=== PATIENT | male | born 1945 | race Asian ===

== ENCOUNTER 2017-01-17 09:52 | Day surgery (SDC) | payer MEDICARE, MEDICAID ==
[~2017-01-17] VITALS: Ht 167.6 cm; Wt 78.0 kg
[~2017-01-17 09:52] MED LIST: ACET-1757 PO; ASPI-515 PO; ATOR10TA9 PO; CHOL20003 PO; FINA5TAB4 PO; GLIP-142 PO; HYDR25TA6 PO; LOSA100T6 PO; METF10002 PO; NIAC400C5 PO; PRAV10TA2 PO; SITA100T PO; TAMS0.4C2 PO
[2017-01-17] MEDS ORDERED: SODIUM CHLORIDE 0.9% 1,000 ML IV SCH (10:33)
[2017-01-17 10:34] VITALS: BP 136/75
[2017-01-17] MEDS ORDERED: SIMV10TA3 PO (10:39)
[2017-01-17 10:51] LABS: HEMOGLOBIN 15.8 g/dL (13.7-18.0)
[2017-01-17] MEDS ORDERED: LIDOCAINE 1%, 20ML ONE (11:08)
[2017-01-17] MEDS ORDERED: FENTANYL PF 100 MCG/2ML ONE (11:48)
[2017-01-17] MEDS ORDERED: MIDAZOLAM 1 MG/ML, 5ML ONE (11:48)
[2017-01-17] MEDS ORDERED: NALOXONE 1 MG/ML, 2ML ONE (11:48)
[2017-01-17] MEDS ORDERED: FLUMAZENIL 0.1 MG/1 ML, 5ML ONE (11:49)
== END 2017-01-17 14:30 | disposition home or self-care (01) ==
LOC: OUT 09:52
PROVIDERS: ATTEND Internal Medicine Hematology & Oncology
DX: D47.3 Essential (hemorrhagic) thrombocythemia (principal); I10 Essential (primary) hypertension; E11.39 Type 2 diabetes mellitus with other diabetic ophthalmic complication; H40.9 Unspecified glaucoma; Z87.891 Personal history of nicotine dependence
CPT/HCPCS: 36415; 38221; 77012; 85025; 85097; 88237; 88264; 88280; 88305; 88311; 88313; G0364; J2250; J3010; J3490; J7030; 88360; 99156; 99157; J2310

== ENCOUNTER 2019-12-07 08:39 | Emergency (ER) | payer MEDICARE, MEDICAID ==
[~2019-12-07] VITALS: Ht 170.2 cm; Wt 73.9 kg
[~2019-12-07 08:39] MED LIST changes: -ACET-1757 PO; +ACET-2065 PO; +CHOL2000 PO; -CHOL20003 PO; +LOSA100T14 PO; -LOSA100T6 PO; +SIMV10TA18 PO
[2019-12-07 08:43] VITALS: BP 142/68
--- NOTE | 2019-12-07 09:01 | NUR ---
PT TO ROOM ASSUMED CARE.
--- NOTE | 2019-12-07 09:17 | NUR ---
ice pack applied to r ribs. lungs ctab. also c/o r knee pain. full ROM in all extrem. plan for ct. call dunne in reach. as
--- NOTE | 2019-12-07 09:50 | NUR ---
report to joyce billings and martha billings. as
--- NOTE | 2019-12-07 09:55 | NUR ---
REPORT RECEIVED FROM LEXIE PACK. ASSUMED CARE
== END 2019-12-07 11:33 | disposition home or self-care (01) ==
LOC: ED 09:34
DX: S20.211A Contusion of right front wall of thorax, initial encounter (principal); I10 Essential (primary) hypertension; E11.9 Type 2 diabetes mellitus without complications; Z87.891 Personal history of nicotine dependence; W18.30XA Fall on same level, unspecified, initial encounter; Y93.89 Activity, other specified; Y92.521 Bus station as the place of occurrence of the external cause; Y99.8 Other external cause status
CPT/HCPCS: 71250; 99284

== ENCOUNTER 2021-04-28 09:53 | Emergency (ER) | payer MEDICARE, MEDICAID ==
[~2021-04-28] VITALS: Ht 167.6 cm; Wt 67.5 kg
[~2021-04-28 09:53] MED LIST changes: -ASPI-515 PO; +ASPI-963 PO
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
[2021-04-28] MEDS ORDERED: ACETAMINOPHEN 500 MG TABLET PO ONE (11:00)
[2021-04-28] MEDS ORDERED: ACETAMINOPHEN 500 MG TABLET ONE (11:01)
[2021-04-28 13:02] VITALS: BP 141/95
== END 2021-04-28 14:09 | disposition home or self-care (01) ==
LOC: ED 12:14
DX: S02.2XXA Fracture of nasal bones, initial encounter for closed fracture (principal); S02.32XA Fracture of orbital floor, left side, initial encounter for closed fracture; S02.40FA Zygomatic fracture, left side, initial encounter for closed fracture; S20.212A Contusion of left front wall of thorax, initial encounter; S80.01XA Contusion of right knee, initial encounter; S80.02XA Contusion of left knee, initial encounter; S50.02XA Contusion of left elbow, initial encounter; S09.90XA Unspecified injury of head, initial encounter; W01.0XXA Fall on same level from slipping, tripping and stumbling without subsequent striking against object, initial encounter; I10 Essential (primary) hypertension; E11.9 Type 2 diabetes mellitus without complications; Y93.89 Activity, other specified; Y92.410 Unspecified street and highway as the place of occurrence of the external cause; Y99.8 Other external cause status
CPT/HCPCS: 70450; 70486; 71250; 72125; 99285

== ENCOUNTER 2021-05-11 14:07 | Day surgery (SDC) | payer MEDICARE, MEDICAID ==
[~2021-05-11] VITALS: Ht 170.2 cm; Wt 67.9 kg
[2021-05-11] MEDS ORDERED: CHLORHEXIDINE 15 ML UDC PO ONE (15:00)
[2021-05-11] MEDS ORDERED: LIDOCAINE-MPF 1%, 2ML INFIL ONE (15:00)
[2021-05-11] MEDS ORDERED: PLEASE ENTER HEIGHT AND WEIGHT MC SCH (15:00)
[2021-05-11] MEDS ORDERED: LACTATED RINGERS 1,000 ML IV SCH (15:00)
[2021-05-11 15:02] VITALS: BP 124/77
[2021-05-11] MEDS ORDERED: ACET-1600 PO (15:33)
[2021-05-11 15:36] LABS: BASOPHILS % (AUTO) 1 % (0-1); EOSINOPHILS % (AUTO) 2 % (1-7); LYMPHOCYTES % (AUTO) 30 % (22-44); MEAN CORPUSCULAR HEMOGLOBIN 36.4 pg (27.5-34.5); MEAN CORPUSCULAR HGB CONC 34.9 g/dL (33.2-36.2); MONOCYTES % (AUTO) 9 % (2-9); NEUTROPHILS % (AUTO) 59 % (42-75); PLATELET COUNT 302 x10^3/uL (130-400); RED BLOOD COUNT 4.35 x10^6/uL (4.38-5.82); RED CELL DISTRIBUTION WIDTH 14.4 % (9.4-14.8)
[2021-05-11 15:47] LABS: ANION GAP 9 mmol/L (5-15); CALCIUM 9.2 mg/dL (8.5-10.1); CHLORIDE 103 mmol/L (98-107); CREATININE 0.98 mg/dL (0.7-1.3)
[2021-05-11] MEDS ORDERED: MIDAZOLAM 1 MG/ML, 2ML ONE (17:42)
[2021-05-11] MEDS ORDERED: FENTANYL PF 100 MCG/2ML ONE (17:43)
[2021-05-11] MEDS ORDERED: LIDOCAINE/PF 1%, 30ML ONE (18:13)
[2021-05-11] MEDS ORDERED: COCAINE TOPICAL SOLN 4%, 4ML ONE (18:13)
[2021-05-11] MEDS ORDERED: OXYMETAZOLINE NASAL SPRAY 0.05%,30ML ONE (18:13)
[2021-05-11] MEDS ORDERED: SUCCINYLCHOLINE 20 MG/ML, 10ML ONE (19:10)
[2021-05-11] MEDS ORDERED: PROPOFOL 10 MG/ML, 20ML ONE (19:10)
[2021-05-11] MEDS ORDERED: ROCURONIUM 10 MG/ML,10ML ONE (19:10)
[2021-05-11] MEDS ORDERED: PROMETHAZINE 25 MG/ML, 1ML IVPush PRN (19:30)
[2021-05-11] MEDS ORDERED: HYDROcodone/APAP 7.5-325MG/15ML UDC PO PRN (19:30)
[2021-05-11] MEDS ORDERED: HYDROmorphone 1 MG/ML, 1ML INJ IVPush PRN (19:30)
[2021-05-11] MEDS ORDERED: FENTANYL PF 100 MCG/2ML IV PRN (19:30)
[2021-05-11] MEDS ORDERED: ONDANSETRON 2MG/ML, 2ML IVPush PRN (19:30)
[2021-05-11] MEDS ORDERED: MEPERIDINE/PF 25MG/0.5ML IVPush PRN (19:30)
[2021-05-11] MEDS ORDERED: OXYcodone 5 MG/5 ML ORAL.SOL UDC PO PRN (19:30)
[2021-05-11] MEDS ORDERED: ACETAMINOPHEN 650 MG/20.3 ML UDC ONE (20:12)
[2021-05-11] MEDS ORDERED: ACETAMINOPHEN 325 MG TABLET PO PRN (20:30)
[2021-05-11] MEDS ORDERED: NAPR-856 PO (20:35)
== END 2021-05-11 21:15 | disposition home or self-care (01) ==
LOC: OR 14:07
PROVIDERS: ATTEND Otolaryngology Facial Plastic Surgery
DX: S02.2XXA Fracture of nasal bones, initial encounter for closed fracture (principal); E11.9 Type 2 diabetes mellitus without complications; Z20.822 Contact with and (suspected) exposure to COVID-19; Z79.899 Other long term (current) drug therapy; V79.88XA Bus occupant (driver) (passenger) injured in other specified transport accidents, initial encounter; Y93.I9 Activity, other involving external motion; Y92.89 Other specified places as the place of occurrence of the external cause; Y99.8 Other external cause status
CPT/HCPCS: 21320; 80048; 82962; 85025; 87635; 93005; J0330; J2704; J3010; J7120; J2250